=== PATIENT | male | born 1950 | race Caucasian/White ===

== ENCOUNTER 2016-11-15 09:42 | Inpatient (IN) | payer OTHER, MEDICARE ==
[2016-11-04 11:22] LABS: % IMMATURE GRANULYOCYTES 0.1 % (0.0-1.1); ABSOLUTE IMMATURE GRANULOCYTES 0.01 10^3/uL (0.00-0.10); ADD DIFF? NO; ADD MORPH? NO; ADD SCAN? NO; ATYPICAL LYMPHOCYTE FLAG 0 (0-99); FRAGMENT RBC FLAG 0 (0-99); HEMATOCRIT 40.8 % (40.0-51.0); HEMOGLOBIN 13.8 g/dL (13.7-17.5); LEFT SHIFT FLG 0 (0-99); LIPEMIA HEMOLYSIS FLAG 90 (0-99); MEAN CELL HEMOGLOBIN 32.5 pg (27.9-34.1); MEAN CELL HEMOGLOBIN CONCENTR. 33.8 g/dL (32.4-36.7); MEAN CELL VOLUME 96.2 fL (81.5-99.8); MEAN PLATELET VOLUME 11.1 fL (8.7-11.7); PLATELET CLUMPS FLAG 0 (0-99); PLATELET COUNT 146 10^3/uL (150-400); RED BLOOD CELL COUNT 4.24 10^6/uL (4.40-6.38); RED CELL DISTRIBUTION WIDTH 13.8 % (11.5-15.2)
[2016-11-04 11:31] LABS: ANION GAP 12 mEq/L (8-16); CALCIUM 9.4 mg/dL (8.5-10.4); CARBON DIOXIDE 23 mEq/l (22-31); CHLORIDE 107 mEq/L (97-110); CREATININE 1.8 mg/dL (0.7-1.3); GLOMERULAR FILTRATION RATE 38; GLUCOSE 86 mg/dL (70-100); POTASSIUM 4.8 mEq/L (3.5-5.2); SODIUM 142 mEq/L (134-144)
[~2016-11-15 09:42] MED LIST: POVIDONE-IODINE 20 ML in SODIUM CL IRRIG SOLUTION 500 ML IRR ONE; ROPIVACAINE 0.2% 80 MG, EPINEPHrine 0.2 MG in BAG 0 ML IU ONE; TRANEXAMIC ACID 1,000 MG in NS 100 ML IV ONE; VANCOMYCIN 1.5 GM in D5W 250 ML IV ONE
[2016-11-15] MEDS ORDERED: VANCOMYCIN PHARMACY TO DOSE MISC ONE (09:59)
[2016-11-15] MEDS ORDERED: ACETAMINOPHEN 325 MG TAB PO ONE (09:59)
[2016-11-15] MEDS ORDERED: FAMOTIDINE 20 MG TAB PO ONE (09:59)
[2016-11-15] MEDS ORDERED: DEXAMETHASONE 4 MG/ML VIAL IVP ONE (09:59)
[2016-11-15] MEDS ORDERED: LIDOCAINE 1% 2 ML INJ ID PRN (10:00)
[2016-11-15] MEDS ORDERED: LR 1,000 ML IV ONE (10:00)
[2016-11-15] MEDS ORDERED: ceFAZolin 1 GM/5 ML SYR ONE (10:05)
[2016-11-15] MEDS ORDERED: VANCOMYCIN 1 GM VIAL ONE (10:05)
[2016-11-15] MEDS ORDERED: VANCOMYCIN 1.5 GM in D5W 250 ML IV ONE (10:30)
--- NOTE | 2016-11-15 11:18 | PDHPUP ---
History & Physical Update H&P update statement: This history and physical update is based on an assessment of the patient which was completed after admission or registration (within 24 hours), but prior to the surgery/procedure. H&P update: H&P reviewed & patient examined, no change in patient's condition since H&P completed
[2016-11-15] MEDS ORDERED: MIDAZOLAM 2 MG/2 ML VIAL IVP ONE (11:51)
--- NOTE | 2016-11-15 11:51 | PDANEPAE ---
ANE History of Present Illness Knee OA ANE Past Medical History - Cardiovascular History Hx Hypertension: Yes Hx Arrhythmias: No Hx Chest Pain: No Hx Coronary Artery / Peripheral Vascular Disease: No Hx CHF / Valvular Disease: No Hx Palpitations: No Cardiovascular History Comment: well managed HTN - Pulmonary History Hx COPD: No Hx Asthma/Reactive Airway Disease: No Hx Recent Upper Respiratory Infection: No Hx Oxygen in Use at Home: No Hx Sleep Apnea: No Sleep Apnea Screening Result - Last Documented: Negative - Neurologic History Hx Cerebrovascular Accident: No Hx Seizures: No Hx Dementia: No - Endocrine History Hx Diabetes: No - Renal History Hx Renal Disorders: Yes Renal History Comment: slow emptying - Liver History Hx Hepatic Disorders: No - Neurological & Psychiatric Hx Hx Neurological and Psychiatric Disorders: No - Cancer History Hx Cancer: No - Congenital Disorder History Hx Congenital Disorders: No - GI History Hx Gastrointestinal Disorders: No - Other Health History Other Health History: OA bilat knees, L knee soreness. hx of "blood pooling in veins in lower legs-on Lasix". hx of glaucoma. "rash" L ankle responds to Triamcinolone - Chronic Pain History Chronic Pain: No - Surgical History Prior Surgeries: R knee open surgery -reimplantation of ureter age 50's. TURP age 50's. Trabeculectomy -bilat eyes ANE Review of Systems - Exercise capacity METS (RN): 4 METS ANE Patient History - Allergies Allergies/Adverse Reactions: Penicillins Allergy (Verified 10/23/16 15:21) Swelling/neck,face,throat - Home Medications Home Medications: Acetaminophen [Tylenol 325mg (*)] 325 mg PO DAILY PRN 11/15/16 [Last Taken Unknown] Furosemide [Lasix 20 MG (*)] 20 mg PO DAILY 11/15/16 [Last Taken 11/14/16] Lisinopril [Zestril 20 mg (*)] 20 mg PO HS 11/15/16 [Last Taken 11/14/16] - NPO status NPO Since - Liquids (Date): 11/14/16 NPO Since - Liquids (Time): 03:00 NPO Since - Solids (Date): 11/14/16 NPO Since - Solids (Time): 18:00 - Anes Hx Anes Hx: no prior problems - Smoking Hx Smoking Status: Former smoker ANE Labs/Vital Signs - Labs Result Diagrams: 11/04/16 10:57 11/04/16 10:57 - Vital Signs Blood Pressure: 118/72 Heart Rate: 56 Respiratory Rate: 16 O2 Sat (%): 94 Height: 184.15 cm Weight: 105.233 kg ANE Physical Exam - Airway Neck exam: FROM Mallampati Score: Class 2 Mouth exam: normal dental/mouth exam - Pulmonary Pulmonary: no respiratory distress - Cardiovascular Cardiovascular: regular rate and rhythym - ASA Status ASA Status: II ANE Anesthesia Plan Anesthesia Plan: MAC, spinal Regional Anesthesia: adductor canal FNB
[2016-11-15] MEDS ORDERED: MIDAZOLAM 2 MG/2 ML VIAL ONE (11:52)
[2016-11-15] MEDS ORDERED: PROPOFOL/EMULSION 500 MG/50 ML BOTTLE IV ONE (11:54)
[2016-11-15] MEDS ORDERED: PROPOFOL 200 MG/20 ML VIAL ONE (13:12)
[2016-11-15] MEDS ORDERED: ROPIVACAINE HCL 150 MG/30 ML INJ ONE (13:15)
--- NOTE | 2016-11-15 13:48 | POSTOPPROG ---
Post Op Note Date of Operation: 11/15/16 Surgeon: Freddy Soares Credit Administrator: Alex Herzog/Yogesh Mosquera Anesthesiologist: Sravan Dickens Anesthesia: IV Sedation, Spinal Post-op Diagnosis: Left knee severe degenerative arthritis. Procedure: Left total knee arthroplasty. Inf/Abcess present in the surg proc area at time of surgery?: No EBL: 50-100 (Adductor canal block.)
[2016-11-15] MEDS ORDERED: NALOXONE HCL 0.4 MG/ML INJ IVP PRN (14:00)
[2016-11-15] MEDS ORDERED: HYDROmorphONE/DILAUDID 1 MG/ML SYR IVP PRN (14:00)
[2016-11-15] MEDS ORDERED: ONDANSETRON 4 MG/2 ML VIAL IVP PRN ×2 (14:00→14:05)
[2016-11-15] MEDS ORDERED: fentaNYL 100 MCG/2 ML INJ IVP PRN (14:00)
[2016-11-15] MEDS ORDERED: DIPHENOXYLATE/ATROPINE LOMOTIL 1 TAB PO PRN (14:05)
[2016-11-15] MEDS ORDERED: CYCLOBENZAPRINE 10 MG TAB PO PRN (14:05)
[2016-11-15] MEDS ORDERED: LACTULOSE 20 GM/30 ML UDCUP PO PRN (14:05)
[2016-11-15] MEDS ORDERED: PHARMACY PAIN CONSULT 1 EA MISC PRN (14:05)
[2016-11-15] MEDS ORDERED: METOCLOPRAMIDE 10 MG/2 ML VIAL IVP PRN (14:05)
[2016-11-15] MEDS ORDERED: ONDANSETRON DISINTEGRATING 4 MG TAB PO PRN (14:05)
[2016-11-15] MEDS ORDERED: diphenhydrAMINE 25 MG CAP PO PRN (14:05)
[2016-11-15] MEDS ORDERED: traMADol 50 MG TAB PO PRN (14:05)
[2016-11-15] MEDS ORDERED: NS 500 ML IV PRN (14:05)
[2016-11-15] MEDS ORDERED: BISACODYL 10 MG SUPP PR PRN (14:05)
[2016-11-15] MEDS ORDERED: PROMETHAZINE HCL 25 MG SUPPR PR PRN (14:05)
[2016-11-15] MEDS ORDERED: POLYETHYLENE GLYCOL 3350 17 GM PKT PO PRN (14:05)
[2016-11-15] MEDS ORDERED: MAGNESIUM HYDROXIDE 30 ML UDCUP PO PRN (14:05)
[2016-11-15] MEDS ORDERED: PROMETHAZINE HCL 25 MG/ML INJ IVP PRN (14:05)
[2016-11-15] MEDS ORDERED: TEMAZEPAM 15 MG CAP PO PRN (14:05)
--- NOTE | 2016-11-15 14:23 | POSTANESTH ---
Post Anesthetic Evaluation Cardiovascular Status: Normal, Stable Respiratory Status: Normal, Stable Level of Consciousness/Mental Status: Can Participate in Eval Pain Control: Adequate, Prn Tx Ordered Nausea/Vomiting Control: Adequate, Prn Tx Ordered Complications Possibly Related to Anesthesia: None Noted
[2016-11-15] MEDS ORDERED: LR 1,000 ML IV SCH (14:30)
[2016-11-15] MEDS: oxyCODONE IR 5 MG TAB PO PRN ×2 (16:35→21:00)
[2016-11-15] MEDS: ACETAMINOPHEN 325 MG TAB PO SCH ×2 (17:38→23:54)
--- NOTE | 2016-11-15 17:52 | GOP ---
[f rep st] OPERATIVE REPORT DATE OF OPERATION: 11/15/2016 SURGEON: Freddy Soares MD CLINICAL RN: Alex Herzog and Yogesh Mosquera. ANESTHESIA: A combination of Marcaine, spinal, IV sedation, and adductor canal block. ANESTHESIOLOGIST: Dr. Sravan Dickens. PREOPERATIVE DIAGNOSIS: Left knee severe degenerative arthritis. POSTOPERATIVE DIAGNOSIS: Left knee severe degenerative arthritis. PROCEDURE PERFORMED: Left total knee arthroplasty, cemented, Doty and Nephew Journey II, posterior stabilized. FINDINGS: DESCRIPTION OF PROCEDURE: The patient was given 1 g of preoperative IV vancomycin within 60 minutes of surgery. He also received IV tranexamic acid at a dose of 10 mg/kg. He was placed on the opera ting room table and given spinal anesthesia with Marcaine by Dr. Dickens. He was then placed s upine and given IV sedation. A Soliz catheter was not used. He wore a stocking and SCD on the nono perative leg. His left lower extremity was prepped with ChloraPrep from the upper thigh tourniquet to the tips of the toes. It was draped free using sterile sheets, stockinette, and Ioban plastic ad hesive drape. The lower leg was wrapped with compressive Coban. The leg was exsanguinated with constantine vation and a 6-inch compressive wrap, and the pneumatic tourniquet was inflated to 275 mmHg. The [facility] time-out was performed to verify the correct patient identity and the correc t surgical side and site. The [place] time-out was also performed. The [place] leg holding device was sterilely attached to the operating room table and used throughout the procedure to help position the knee. A straight midline incision was made centered on the suazo lla. Subcutaneous tissues were sharply divided, and hemostasis was obtained using electrocautery. A medial subcutaneous flap was developed, and the capsule and synovium were opened in a medial parap atellar fashion. Extensive degenerative changes were present in all 3 compartments, but worse in th e patellofemoral joint and medial compartment. The medial capsule and periosteum were elevated off the rim of the medial tibial plateau all the way around to the posteromedial corner. The medial col lateral ligament was released enough to balance the medial side of the knee. In order to improve ex posure, his patella was prepared first. The original thickness of the patella was measured. Peripheral osteophytes were removed. I cut a f lat surface on the back of the patella. It was sized for a 41 mm resurfacing component. I removed enough bone from the patella such that the remaining bone plus the thickness of the patellar compone nt recreated the original thickness of the patella. The composite thickness was 24 mm. The intrame dullary alignment guide system was used to set up the distal femoral cut. The distal femur was cut in 5 degrees of valgus. Because of a 10-15 degree preoperative flexion contracture, I made a +2 mm cut on the distal femur. The sizing jig was used to determine proper femoral sizing. I shifted the size 8 jig anteriorly 2 mm in order to accommodate the size 8 without notching the anterior cortex. The 5 in 1 cutting block was applied, and the anterior and posterior condylar cuts and chamfer cut s were made. The final jig was used to remove the central portion of the distal femur to accommodat e the posterior stabilized femoral component. I was careful to determine proper rotation by referkumar leal off Whitesides line. Each cut was checked for accuracy before and after it was made. The femu r was sized for a size 8 posterior stabilized component. The trial component was tapped securely in to place and was a good fit. Next, the tibia was prepared. The proximal tibial cut was made using the extramedullary alignment g uide system. The cut was made in a few degrees of posterior slope. I was careful to achieve proper varus and valgus alignment and proper rotation. The posterior compartment was cleared of meniscal remnants. Osteophytes were removed the back of the femoral condyles. I checked the flexion and ext ension gaps, and they were equal, balanced and rectangular. The tibia was sized for a size 7 component. With the trial components in place, I selected a 10 mm polyethylene posterior stabilized tibial insert. The knee came to full extension and flexed to 125 degrees. The collateral ligaments were stable and balanced in 90 degrees of flexion and full extens ion. The trial patellar button was applied, and patellar tracking was checked. It was excellent wi thout any digital pressure. 40 mL of a joint anesthetic cocktail was injected in the posterior capsule, the periarticular struct ures, the quadriceps muscle and tendon areas, and the subcutaneous tissues along the skin edges. A second dose of IV tranexamic acid was given at a dose of 10 mg/kg. The surfaces were prepared for c ementing. They were carefully cleaned with the pulsating lavage irrigation and thoroughly dried. T he CarboJet device was used to blow dry the cancellous surfaces. A double batch of high viscosity m ethylmethacrylate cement with 2 g of powdered vancomycin added was mixed. While it was still in a s lidia liquid state, all 3 components were cemented in place. Excess cement was removed before it hard ened. The trial 10 mm tibial insert was re-tried and was the proper thickness. The actual componen t was inserted and locked into place. The knee was thoroughly irrigated one final time with a dilut e Betadine solution. The tourniquet was deflated. Total tourniquet time was 52 minutes. The vastus medialis portion of the extensor mechanism was repaired with several interrupted figure-o f-eight #2 FiberWire sutures. The capsule and synovium were closed first with multiple interrupted pceuei-vq-trvyo 0 PDS sutures, followed by a running #2 barbed Ethicon Stratafix PDO suture. The moralez bcutaneous tissues were closed with a running 0 barbed Ethicon Stratafix Monoderm suture. The skin was closed with a running 3-0 barbed Ethicon Stratafix Monoderm subcuticular suture. The skin was s ealed with half-inch Steri-Strips. The wound was covered with Xeroform gauze and flat 4x4s. The kn ee was wrapped with Kerlix and 6-inch compressive wrap. A long-leg SHIVAM stocking and SCD were applie d followed by the cooling device. The patient wore a stocking and SCD on the opposite leg during th e procedure. I used a size 8 cemented Doty and Nephew Oxinium posterior stabilized femoral component, size 7 deirdre ented tibial base plate, a 10 mm posterior stabilized tibial insert and a 41 mm cemented round all p olyethylene resurfacing patellar component. The estimated blood loss following placement of the tourniquet was about 100 mL. The sponge and nee dle count were correct on 2 occasions. He was awakened from the anesthesia, transferred to his hosp [facility] and taken to the PACU in satisfactory condition. There were no recognized intraoperativ e complications. In the PACU, for additional postoperative pain control, Dr. Dickens performed an adductor canal block. Alex Herzog and Yogesh Mosquera acted as surgical assistants. Their assistance was a medical andria rojas to safely complete the procedure. /[id number]/MODL
[2016-11-15] MEDS: ASPIRIN 325 MG TAB PO SCH (21:00)
[2016-11-15] MEDS ORDERED: LISINOPRIL 20 MG TAB PO SCH (21:00)
[2016-11-15] MEDS: FAMOTIDINE 20 MG TAB PO SCH (21:00)
[2016-11-15] MEDS: SENNOSIDES/DOCUSATE SODIUM TAB PO SCH (21:01)
[2016-11-16] MEDS: oxyCODONE IR 5 MG TAB PO PRN ×4 (03:00→14:07)
[2016-11-16 05:12] LABS: HEMATOCRIT 35.3 % (40.0-51.0); HEMOGLOBIN 11.9 g/dL (13.7-17.5)
[2016-11-16] MEDS: ACETAMINOPHEN 325 MG TAB PO SCH ×2 (05:54→12:53)
[2016-11-16] MEDS: SENNOSIDES/DOCUSATE SODIUM TAB PO SCH (07:39)
[2016-11-16] MEDS: FAMOTIDINE 20 MG TAB PO SCH (07:40)
[2016-11-16] MEDS: ASPIRIN 325 MG TAB PO SCH (07:41)
[2016-11-16 07:56] LABS: CREATININE 1.7 mg/dL (0.7-1.3); GLOMERULAR FILTRATION RATE 40
[2016-11-16] MEDS ORDERED: FERROUS SULFATE 140 MG TAB.ER PO SCH (09:00)
[2016-11-16] MEDS ORDERED: FUROSEMIDE 20 MG TAB PO SCH (09:00)
--- NOTE | 2016-11-16 10:31 | SOAPPROG ---
SOAP Progress Note Assessment/Plan: Assessment: POD #1, s/p L TKA Awake, alert, afebrile. Dressing clean and dry. Post op films look good. H/H ok. OOB with PT. Plan: Cont PT/OT D/c to home later today. 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
--- NOTE | 2016-11-16 10:39 | PDIAF ---
- Diagnosis Diagnosis: left knee OA Code Status: Full Code - Medication Management Discharge Medications: Medications to Continue on Transfer Furosemide [Lasix 20 MG (*)] 20 mg PO DAILY 11/15/16 [Last Taken 11/14/16] Lisinopril [Zestril 20 mg (*)] 20 mg PO HS 11/15/16 [Last Taken 11/14/16] Acetaminophen [Tylenol 325mg (*)] 650 mg PO Q6HRS #0 tab 11/16/16 [Last Taken Unknown] Aspirin [Aspirin 325 mg (*)] 325 mg PO DAILY #21 tab 11/16/16 [Last Taken Unknown] Ferrous Sulfate [Slow Fe 140 MG (*)] 140 mg PO DAILY #30 tab.er 11/16/16 [Last Taken Unknown] Ondansetron Odt [Zofran Odt 4 mg (*)] 4 mg PO Q4HRS PRN #0 tab 11/16/16 [Last Taken Unknown] oxyCODONE IR [Oxycodone Ir (*)] 5 - 10 mg PO Q3HRS PRN #0 tab 11/16/16 [Last Taken Unknown] traMADol [Ultram 50 mg (*)] 50 mg PO Q6HRS PRN #0 tab 11/16/16 [Last Taken Unknown] Discharge Medications: Refer to the Discharge Home Medication list for PRN reason. PICC Care - Routine: N/A - Orders Services needed: Home Care, Physical Therapy Home Care Face to Face: I certify that this patient was under my care and that I had the required [id number] encounter meeting the encounter requirements on the discharge day. My findings support the fact that the patient is homebound as defined in CMS Chapter 7 Medicare Benefits Manual 30.1.1, The condition of the patient is such that there exists a normal inability to leave home and consequently, leaving home would require a considerable and taxing effort. Diet Recommendation: no restrictions on diet Diet Texture: Regular Texture Diet Soliz: Not applicable Apolinar Stockings Discontinue Date: 1 week Wound Care Instructions: keep clean and dry. You may shower. Activity/Weight Bearing Restrictions: as tolerated. Equipment: Use Zero knee while in bed as tolerated. - Follow Up Care Current Providers and Referrals: NONE *PRIMARY CARE P,. [Primary Care Provider] - Freddy Soares MD [Medical Doctor] - 12/04/16 8:45 am
[2016-11-16 12:41] VITALS: BP 106/61; PULSE 69; RESP 12; TEMP 98; O2SAT 95
[2016-11-16] MEDS ORDERED: ENOXAPARIN 40 MG/0.4 ML SYR SC ONE (13:55)
[2016-11-16] MEDS ORDERED: ENOXAPARIN 40 MG/0.4 ML SYR SC SCH (14:00)
== END 2016-11-16 14:32 | disposition home health service (06) | DRG 470 ==
LOC: F3N 09:42
PROVIDERS: ADMIT Orthopaedic Surgery; ATTEND Orthopaedic Surgery
PROC: 0SRD0J9 Replacement of Left Knee Joint with Synthetic Substitute, Cemented, Open Approach (ICD-10-PCS; principal; 2016-11-15 11:45)
DX: M17.0 Bilateral primary osteoarthritis of knee (principal); Z86.718 Personal history of other venous thrombosis and embolism; I10 Essential (primary) hypertension; M10.9 Gout, unspecified
CPT/HCPCS: 97116-GP; 97161-GP; 97165-GO; C1713; G8978-GP-CI; G8979-GP-CI; G8980-GP-CI; G8987-GO-CI; G8988-GO-CI; G8989-GO-CI; J0171; J1100; J1650; J2250; J2704; J2795; J3370

== ENCOUNTER 2017-02-28 09:30 | Inpatient (IN) | payer OTHER, MEDICARE ==
--- NOTE | 2017-02-19 18:00 | GHP ---
[f rep st] PREOP HISTORY AND PHYSICAL DATE OF ADMISSION: He will be an a.m. admission for surgery at [facility] on February 28, 2017. PROBLEM: Right knee arthritis. HISTORY OF PRESENT ILLNESS: The patient is a 66-year-old man admitted for right total knee arthroplasty. He has been experiencing progressive bilateral knee pain. His activities have been limited. He has daily pain and night pain. He is unable to take anti-inflammatory medications because of mildly abnormal renal function. He underwent a left total knee arthroplasty on October, which has been successful. He is admitted at this time for a right total knee arthroplasty. PAST MEDICAL HISTORY: He is treated for hypertension. No history of heart disease, hepatitis, sleep apnea or bleeding problems. He had a blood clot in the left lower extremity 10 or 15 years ago. That was a spontaneous DVT. CURRENT MEDICATIONS: Lasix daily for left lower extremity swelling. Lisinopril for hypertension. ALLERGIES: Drug allergies: Penicillin. Metal allergy: None. Latex allergy: None. SOCIAL HISTORY: The patient does not smoke cigarettes. Occasionally drinks wine. He is working as an public health specialist. He is . FAMILY HISTORY: Unknown. PHYSICAL EXAMINATION: VITAL SIGNS: Height 6 feet 1 inch. Weight 225 pounds. BMI 29.7. EYES: The conjunctivae and sclerae are clear. Pupils are round and reactive. MOUTH: Good oral hygiene. No loose teeth. CHEST: Clear. HEART: Regular rhythm. No murmurs. EXTREMITIES: Pertinent findings limited to his right knee. He has slightly increased valgus alignment. A small effusion is present. He lacks 5 degrees of full extension and flexes to 110 degrees. IMAGING: His films show advanced degenerative arthritis of the right knee. He is bone on bone in the lateral compartment. He has increased valgus alignment. Moderate degenerative changes in the medial compartment. His left total knee looks excellent. IMPRESSION ON ADMISSION: 1. Right knee degenerative arthritis with valgus deformity. He is prepared for a right total knee arthroplasty. 2. Three months status post successful left total knee arthroplasty. 3. Treatment for hypertension. 4. History of left lower extremity DVT. PLAN: He will undergo a right total knee arthroplasty. The surgery has been described to him, including the risks, complications, expectations, and recovery time. He is in a high risk category for DVT and will be treated accordingly. I have stressed the importance of postoperative physical therapy. I have talked to him about the risk of infection. I have also advised him that with bilateral procedures there can be mild cyeg-fu-vboz differences in the recovery and even in the final result. He understands that a small percentage of people do not get a good result with a total knee replacement. He does not have a primary care doctor. /[id number]/MODL MTDD
--- NOTE | 2017-02-19 18:00 | GHP ---
[f rep st] PREOP HISTORY AND PHYSICAL DATE OF ADMISSION: He will be an a.m. admission for surgery at [facility] on February 28, 2017. PROBLEM: Right knee arthritis. HISTORY OF PRESENT ILLNESS: The patient is a 66-year-old man admitted for right total knee arthroplasty. He has been experiencing progressive bilateral knee pain. His activities have been limited. He has daily pain and night pain. He is unable to take anti-inflammatory medications because of mildly abnormal renal function. He underwent a left total knee arthroplasty on October, which has been successful. He is admitted at this time for a right total knee arthroplasty. PAST MEDICAL HISTORY: He is treated for hypertension. No history of heart disease, hepatitis, sleep apnea or bleeding problems. He had a blood clot in the left lower extremity 10 or 15 years ago. That was a spontaneous DVT. CURRENT MEDICATIONS: Lasix daily for left lower extremity swelling. Lisinopril for hypertension. ALLERGIES: Drug allergies: Penicillin. Metal allergy: None. Latex allergy: None. SOCIAL HISTORY: The patient does not smoke cigarettes. Occasionally drinks wine. He is working as an associate accountant. He is . FAMILY HISTORY: Unknown. PHYSICAL EXAMINATION: VITAL SIGNS: Height 6 feet 1 inch. Weight 225 pounds. BMI 29.7. EYES: The conjunctivae and sclerae are clear. Pupils are round and reactive. MOUTH: Good oral hygiene. No loose teeth. CHEST: Clear. HEART: Regular rhythm. No murmurs. EXTREMITIES: Pertinent findings limited to his right knee. He has slightly increased valgus alignment. A small effusion is present. He lacks 5 degrees of full extension and flexes to 110 degrees. IMAGING: His films show advanced degenerative arthritis of the right knee. He is bone on bone in the lateral compartment. He has increased valgus alignment. Moderate degenerative changes in the medial compartment. His left total knee looks excellent. IMPRESSION ON ADMISSION: 1. Right knee degenerative arthritis with valgus deformity. He is prepared for a right total knee arthroplasty. 2. Three months status post successful left total knee arthroplasty. 3. Treatment for hypertension. 4. History of left lower extremity DVT. PLAN: He will undergo a right total knee arthroplasty. The surgery has been described to him, including the risks, complications, expectations, and recovery time. He is in a high risk category for DVT and will be treated accordingly. I have stressed the importance of postoperative physical therapy. I have talked to him about the risk of infection. I have also advised him that with bilateral procedures there can be mild aefl-by-mzez differences in the recovery and even in the final result. He understands that a small percentage of people do not get a good result with a total knee replacement. He does not have a primary care doctor. /[id number]/MODL MTDD
[~2017-02-28 09:30] MED LIST changes: +NS IV ONE; -ROPIVACAINE 0.2% 80 MG, EPINEPHrine 0.2 MG in BAG 0 ML IU ONE; +ROPIVACAINE 0.2% 80 MG, EPINEPHrine 0.2 MG, KETOROLAC TROMETHAMINE 30 MG in BAG 0 ML IU ONE; -TRANEXAMIC ACID 1,000 MG in NS 100 ML IV ONE; +TRANEXAMIC ACID IV ONE; +ceFAZolin 1 GM/5 ML SYR ONE
[2017-02-28] MEDS ORDERED: VANCOMYCIN 1 GM VIAL ONE (10:12)
[2017-02-28] MEDS ORDERED: ACETAMINOPHEN 325 MG TAB PO ONE (10:13)
[2017-02-28] MEDS ORDERED: DEXAMETHASONE 4 MG/ML VIAL IVP ONE (10:13)
[2017-02-28] MEDS ORDERED: FAMOTIDINE 20 MG TAB PO ONE (10:13)
[2017-02-28] MEDS ORDERED: VANCOMYCIN PHARMACY TO DOSE MISC ONE (10:13)
[2017-02-28] MEDS ORDERED: LR 1,000 ML IV ONE (10:58)
[2017-02-28] MEDS ORDERED: MIDAZOLAM 2 MG/2 ML VIAL IVP ONE (11:20)
--- NOTE | 2017-02-28 12:17 | PDANEPAE ---
ANE Past Medical History - Cardiovascular History Hx Hypertension: Yes Hx Arrhythmias: No Hx Chest Pain: No Hx Coronary Artery / Peripheral Vascular Disease: No Hx CHF / Valvular Disease: No Hx Palpitations: No Cardiovascular History Comment: well managed HTN - Pulmonary History Hx COPD: No Hx Asthma/Reactive Airway Disease: No Hx Recent Upper Respiratory Infection: No Hx Oxygen in Use at Home: No Hx Sleep Apnea: No Sleep Apnea Screening Result - Last Documented: Positive Pulmonary History Comment: hossein triggers - Neurologic History Hx Cerebrovascular Accident: No Hx Seizures: No Hx Dementia: No - Endocrine History Hx Diabetes: No - Renal History Hx Renal Disorders: Yes Renal History Comment: slow emptying - Liver History Hx Hepatic Disorders: No - Neurological & Psychiatric Hx Hx Neurological and Psychiatric Disorders: No - Cancer History Hx Cancer: No - Congenital Disorder History Hx Congenital Disorders: No - GI History Hx Gastrointestinal Disorders: No - Other Health History Other Health History: wears glasses - Chronic Pain History Chronic Pain: Yes (right knee) - Surgical History Prior Surgeries: 11/15/16 Left TKA with Fany. R knee open surgery - reimplantation of ureter age 48's. TURP age 50's. Trabeculectomy -bilat eyes ANE Review of Systems Review of Systems: - Exercise capacity METS (RN): 4 METS ANE Patient History - Allergies Allergies/Adverse Reactions: Penicillins Allergy (Verified 01/25/17 10:22) Swelling/neck,face,throat - Home Medications Home Medications: Furosemide [Lasix 20 MG (*)] 11/15/16 [Last Taken 02/28/17 08:00] Lisinopril [Zestril 20 mg (*)] 11/15/16 [Last Taken 02/27/17 22:00] Acetaminophen [Tylenol 325mg (*)] 01/25/17 [Last Taken 02/27/17 22:00] Aspirin 81mg (*) 01/25/17 [Last Taken 02/25/17] Melatonin 01/25/17 [Last Taken 02/25/17] - NPO status NPO Since - Liquids (Date): 02/27/17 NPO Since - Liquids (Time): 19:00 NPO Since - Solids (Date): 02/27/17 NPO Since - Solids (Time): 22:00 - Smoking Hx Smoking Status: Former smoker - Family Anes Hx Family Hx Anesthesia Complications: none ANE Labs/Vital Signs - Vital Signs Blood Pressure: 129/80 Heart Rate: 71 Respiratory Rate: 16 O2 Sat (%): 93 Height: 184.15 cm Weight: 105.233 kg ANE Physical Exam - Airway Mallampati Score: Class 3 - Pulmonary Pulmonary: no respiratory distress, no rales or rhonchi - Cardiovascular Cardiovascular: regular rate and rhythym - ASA Status ASA Status: II
[2017-02-28] MEDS ORDERED: MIDAZOLAM 2 MG/2 ML VIAL ONE (12:20)
[2017-02-28] MEDS ORDERED: fentaNYL 100 MCG/2 ML INJ ONE (12:20)
[2017-02-28] MEDS ORDERED: PROPOFOL/EMULSION 500 MG/50 ML BOTTLE IV ONE (12:21)
[2017-02-28] MEDS ORDERED: ONDANSETRON 4 MG/2 ML VIAL IVP PRN ×2 (13:58→14:48)
[2017-02-28] MEDS ORDERED: NALOXONE HCL 0.4 MG/ML INJ IVP PRN (13:58)
[2017-02-28] MEDS ORDERED: ONDANSETRON 4 MG/2 ML VIAL ONE (14:22)
[2017-02-28] MEDS ORDERED: RANITIDINE 50 MG/2 ML VIAL ONE (14:22)
[2017-02-28] MEDS ORDERED: LIDOCAINE 2% 100 MG/5 ML SYR ONE (14:22)
[2017-02-28] MEDS ORDERED: ROPIVACAINE HCL 150 MG/30 ML INJ ONE (14:22)
--- NOTE | 2017-02-28 14:33 | POSTOPPROG ---
Post Op Note Date of Operation: 02/28/17 Surgeon: Freddy Soares Medical Technologist Blood Bank: Alex Herzog/Yogesh Mosquera Anesthesiologist: Dr. David Suarez Anesthesia: IV Sedation, Spinal Post-op Diagnosis: Right knee arthritis Procedure: Right total knee arthroplasty Inf/Abcess present in the surg proc area at time of surgery?: No EBL: 50-100 (Adductor canal block in PACU)
[2017-02-28] MEDS ORDERED: ONDANSETRON DISINTEGRATING 4 MG TAB PO PRN (14:48)
[2017-02-28] MEDS ORDERED: PROMETHAZINE HCL 25 MG/ML INJ IVP PRN (14:48)
[2017-02-28] MEDS ORDERED: PROMETHAZINE HCL 25 MG SUPPR PR PRN (14:48)
[2017-02-28] MEDS ORDERED: POLYETHYLENE GLYCOL 3350 17 GM PKT PO PRN (14:48)
[2017-02-28] MEDS ORDERED: TEMAZEPAM 15 MG CAP PO PRN (14:48)
[2017-02-28] MEDS ORDERED: diphenhydrAMINE 25 MG CAP PO PRN (14:48)
[2017-02-28] MEDS ORDERED: LACTULOSE 20 GM/30 ML UDCUP PO PRN (14:48)
[2017-02-28] MEDS ORDERED: MAGNESIUM HYDROXIDE 30 ML UDCUP PO PRN (14:48)
[2017-02-28] MEDS ORDERED: METOCLOPRAMIDE 10 MG/2 ML VIAL IVP PRN (14:48)
[2017-02-28] MEDS ORDERED: NS 500 ML IV PRN (14:48)
[2017-02-28] MEDS ORDERED: BISACODYL 10 MG SUPP PR PRN (14:48)
[2017-02-28] MEDS ORDERED: oxyCODONE IR 5 MG TAB PO PRN (14:48)
[2017-02-28] MEDS ORDERED: CYCLOBENZAPRINE 10 MG TAB PO PRN (14:48)
[2017-02-28] MEDS ORDERED: DIPHENOXYLATE/ATROPINE LOMOTIL 1 TAB PO PRN (14:48)
[2017-02-28] MEDS ORDERED: LR 1,000 ML IV SCH (15:00)
--- NOTE | 2017-02-28 15:25 | GOP ---
[f rep st] OPERATIVE REPORT DATE OF OPERATION: 02/28/2017 SURGEON: Freddy Soares MD DISABILITY LIAISON OFFICER: Alex Herzog PA-C, and oYgesh Mosquera CFA. ANESTHESIA: A combination of Marcaine spinal and IV sedation. ANESTHESIOLOGIST: David Suarez MD. PREOPERATIVE DIAGNOSIS: Right knee severe degenerative arthritis. POSTOPERATIVE DIAGNOSIS: Right knee severe degenerative arthritis. PROCEDURE PERFORMED: A right total knee arthroplasty, cemented, Doty Nephew Journey II, posterior s tabilized. FINDINGS: DESCRIPTION OF PROCEDURE: The patient was given 1 g of vancomycin preoperatively within 60 minutes o f surgery. He also received IV tranexamic acid at a dose of 10 mg/kg. He was placed on the operatin g room table and given spinal anesthesia with Marcaine by Dr. Suarez. He was placed supine and given IV sedation. A Soliz catheter was not used. He wore a SHIVAM stocking and SCD on the nonoperative leg . His right lower extremity was prepped with ChloraPrep from the upper thigh tourniquet to the tips of the toes. It was draped free using sterile sheets, stockinette, and Ioban plastic adhesive drape. The lower leg was wrapped with compressive Coban. The leg was exsanguinated with elevation and a 6 -inch compressive wrap, and the pneumatic tourniquet was inflated to 275 mmHg. The World Health Organization time-out was performed to verify the correct patient identity and the c orrect surgical side and site. The [place] time-out was also performed. The [place] [employer] leg-holding device was sterilely attached to the operating room table and used throughout the procedure to help position the knee. A straight midline incision was made centered on the patell a. Subcutaneous tissues were sharply divided, and hemostasis was obtained using electrocautery. A medial subcutaneous flap was developed, and the capsule and synovium were opened in medial parapate llar fashion. Extensive degenerative changes were present, particularly in the patellofemoral joint and lateral compartment. The medial capsule and periosteum were elevated off the rim and medial tibi al plateau all the way around to the posteromedial corner. His medial collateral ligament was releas ed enough to balance the medial side of the knee. Because of the mild preoperative valgus deformity, I did a very minimal medial release. In order to improve exposure, the patella was prepared first. The original thickness of the patella was measured. Peripheral osteophytes were removed. I cut a flat surface on the back of the patella. It was sized for a 41 mm resurfacing component. I removed enough bone from the patella such that t he remaining bone plus the thickness of the patellar component recreated the original thickness of th e patella. The composite thickness was 25 mm. The intramedullary alignment guide system was used to set up the distal femoral cut. The distal femu r was cut in 5 degrees of valgus. Because of a slight preoperative flexion contracture, I made a +2 mm cut on the distal femur. The sizing jig was used to determine proper femoral sizing. He was a tr ue size 8 without a shift. The 5-in-1 cutting block was applied, and anterior and posterior condylar cuts and chamfer cuts were made. The final jig was used to remove the central portion of the distal femur to accommodate the posterior-stabilized femoral component. I was careful to determine proper rotation by referencing off Trista line and other bony anatomic landmarks. Each cut was checked f or accuracy before and after it was made. The femur was sized for a size 8 posterior-stabilized comp onent. Next, the tibia was prepared. The proximal tibial cut was made using the extramedullary alignment gu mery system. The cut was made in a few degrees of posterior slope. I was careful to achieve proper v arus/valgus alignment and proper rotation. The posterior compartment was cleared of meniscal remnant s. Osteophytes were removed from the back of his femoral condyles. I checked the flexion and extens ion gaps, and they were equal, balanced, and rectangular. The tibia was sized for a size 7 component. With the trial components in place, I selected a 10 mm p olyethylene posterior-stabilized tibial insert. The knee came to full extension and flexed to 120 de grees. The collateral ligaments were stable and balanced in 90 degrees of flexion and full extension . The trial patellar button was applied, and tracking was checked. Tracking was excellent without a ny digital pressure. 40 mL of the joint anesthetic cocktail were injected into the posterior capsule, the periarticular st ructures, the quadriceps muscle and tendon areas, and the subcutaneous tissues along the skin edges. A second dose of IV tranexamic acid was given at a dose of 10 mg/kg. The surfaces were prepared for cementing. They were carefully cleaned with the pulsating lavage and thoroughly dried. The CarboJet device was used to blow dry the cancellous surfaces. A double batch of high-viscosity methylmethacrylate cement with 2 g of powdered vancomycin added was mixed. While i t was still in a semi-liquid state, all [address] components were cemented in place. Excess cement was remov ed before it hardened. The 10 mm trial tibial insert was re-tried and was the proper thickness. The actual component was in serted and locked into place. The knee was thoroughly irrigated one final time with a dilute Betadin e solution. The tourniquet was deflated, and the total tourniquet time was 52 minutes. The vastus medialis portion of the extensor mechanism was repaired with several interrupted figure-of -eight #2 FiberWire sutures. The capsule and synovium were closed first with multiple interrupted fi [id number] 0 PDS sutures, followed by a running #2 barbed Ethicon Stratafix PDO suture. The subcu taneous tissues were closed with a running 0 barbed Ethicon Stratafix Monoderm suture. The skin was closed with a running 3-0 barbed Ethicon Stratafix Monoderm subcuticular suture. The skin was sealed with half-inch Steri-Strips. The wound was covered with a sterile Mepilex waterproof surgical dress ing, followed by a 6-inch compressive wrap. A long-leg SHIVAM stocking and SCD were applied, followed b y the cooling device. I used a size 8 cemented Doty and Nephew Oxinium posterior-stabilized femoral component, a size 7 ce mented tibial base plate, a 10 mm posterior-stabilized tibial insert, and a 41 mm cemented round all- polyethylene resurfacing patellar component. The estimated blood loss following deflation of the tourniquet was about 100 cc. The sponge and need le count were correct on 2 occasions. The patient was awakened from anesthesia, transferred to his [facility] and taken to PACU in sa tisfactory condition. There were no recognized intraoperative complications. In the PACU, for additional postoperative pain control, Dr. Suarez performed an adductor canal block. Yogesh Mosquera CFA, and Alex Herzog PA-C acted as surgical assistants. Their assistance was a me dical necessity for safe completion of the procedure. /[id number]/MODL
--- NOTE | 2017-02-28 17:10 | POSTANESTH ---
Post Anesthetic Evaluation Cardiovascular Status: Normal, Stable Respiratory Status: Normal, Stable Level of Consciousness/Mental Status: Can Participate in Eval Pain Control: Adequate, Prn Tx Ordered Nausea/Vomiting Control: Adequate, Prn Tx Ordered Complications Possibly Related to Anesthesia: None Noted (Adductor Canal Sapenous Nerve block with US guidance performed in [facility]. Proceedure tolerated well. image sent to medical records.)
[2017-02-28] MEDS: ACETAMINOPHEN 325 MG TAB PO SCH (17:55)
[2017-02-28] MEDS ORDERED: LISINOPRIL 20 MG TAB PO SCH (21:00)
[2017-02-28] MEDS: SENNOSIDES/DOCUSATE SODIUM TAB PO SCH (21:57)
[2017-02-28] MEDS: FAMOTIDINE 20 MG TAB PO SCH (21:58)
[2017-03-01] MEDS: ACETAMINOPHEN 325 MG TAB PO SCH ×3 (00:02→11:29)
--- NOTE | 2017-03-01 07:28 | SOAPPROG ---
SOAP Progress Note Assessment/Plan: Assessment: Afebrile. Awake and alert. He has been up and walking to the bathroom several times. Mild pain. His dressing is dry. Postop films look good. Hemoglobin and hematocrit are satisfactory. Plan: Up with physical therapy for Phillips walking and stairs. Discharge later today. 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
[2017-03-01 07:59] VITALS: BP 120/73; PULSE 63; RESP 12; TEMP 98.3; O2SAT 90
--- NOTE | 2017-03-01 08:09 | GDS ---
[f rep st] DISCHARGE SUMMARY ADMISSION DIAGNOSIS: Right knee degenerative arthritis. DISCHARGE DIAGNOSIS: Right knee degenerative arthritis. OPERATION PERFORMED: 02/28/2017, right total knee arthroplasty. POSTOPERATIVE COMPLICATIONS: None. CONDITION ON DISCHARGE: Improved. DESCRIPTION OF HOSPITAL COURSE: The patient was admitted to the hospital on the morning of surgery. His CBC was normal except for a platelet count of 148,000. Electrolytes were normal. BUN 46, creat inine 1.7. The same day, under a combination of Marcaine, spinal, IV sedation, and adductor canal bl ock he underwent a right total knee arthroplasty. Postoperatively, he was treated with multimodal DV T prophylaxis, including early ambulation and Lovenox. He has a history of previous left lower extre mity DVT. On the first postoperative day, his hemoglobin and hematocrit were 12.6 and 38.3. He was seen by Physical Therapy and made good progress with ambulation and stairs. By the time of discharge , he was afebrile, his wound was clean and dry, and he was independent walking. DISPOSITION: The patient is discharged to his home. He will go to outpatient physical therapy at my office. He may progress to full weightbearing on the right as tolerated. Continue Lovenox 40 mg moralez bcu daily for 21 days. I will see him back in the office in 10 or 12 days. He may progress to full weightbearing on the right as tolerated. SHIVAM stockings for 1 week. If there are any problems, he is to call me at the office. /[id number]/MODL
[2017-03-01] MEDS: SENNOSIDES/DOCUSATE SODIUM TAB PO SCH (08:43)
[2017-03-01] MEDS: FAMOTIDINE 20 MG TAB PO SCH (08:44)
[2017-03-01] MEDS ORDERED: FERROUS SULFATE 140 MG TAB.ER PO SCH (09:00)
[2017-03-01] MEDS ORDERED: ENOXAPARIN 40 MG/0.4 ML SYR SC SCH (09:00)
[2017-03-01] MEDS ORDERED: FUROSEMIDE 20 MG TAB PO SCH (09:00)
--- NOTE | 2017-03-01 15:07 | ASMTCMCOM ---
CM Note CM Note Notes: PT clears pt for home. Pt no longer wants [facility], he will have outpatient PT. No CM d/c needs identified. Date Signed: 03/01/2017 03:06 PM Electronically Signed By:MARK Garcia
--- NOTE | 2017-03-01 15:07 | ASDISCHSUM ---
Discharge Information Plan Status:Home with No Needs Medically Cleared to Leave: Discharge Date:03/01/2017 12:25 PM CM D/C Disposition:Home, Routine, Self-Care ADT D/C Disposition:Home, Routine, Self-Care Projected Discharge Date:03/01/2017 12:25 PM Transportation at D/C: Discharge Delay Reason: Follow-Up Date:03/01/2017 12:25 PM Discharge Slot: Final Diagnosis: Placement Information Patient Contact Information Contact Name:GERHARD Relationship: Address:[address] City:[place] Alternate Phone: State/Zip Code:[place] [address] Email: Financial Information Financial Class: Primary Plan Desc:MEDICARE INPATIENT Primary Plan Number:[id number] Secondary Plan Desc:AARP/MDR SUPPLEMENT Secondary Plan Number:[id number] Assessment Information [facility] CM Progress Note CM Note CM Note Notes: PT clears pt for home. Pt no longer wants C, he will have outpatient PT. No CM d/c needs identified. Date Signed: 03/01/2017 03:06 PM Electronically Signed By:MARK Garcia Intervention Information
--- NOTE | 2017-03-01 15:07 | ASDISCHSUM ---
Discharge Information Plan Status:Home with No Needs Medically Cleared to Leave: Discharge Date:03/01/2017 12:25 PM CM D/C Disposition:Home, Routine, Self-Care ADT D/C Disposition:Home, Routine, Self-Care Projected Discharge Date:03/01/2017 12:25 PM Transportation at D/C: Discharge Delay Reason: Follow-Up Date:03/01/2017 12:25 PM Discharge Slot: Final Diagnosis: Placement Information Patient Contact Information Contact Name:GERHARD Relationship: Address:[address] City:[place] Alternate Phone: State/Zip Code:[place] [address] Email: Financial Information Financial Class: Primary Plan Desc:MEDICARE INPATIENT Primary Plan Number:[id number] Secondary Plan Desc:AARP/MDR SUPPLEMENT Secondary Plan Number:[id number] Assessment Information [facility] CM Progress Note CM Note CM Note Notes: PT clears pt for home. Pt no longer wants C, he will have outpatient PT. No CM d/c needs identified. Date Signed: 03/01/2017 03:06 PM Electronically Signed By:MARK Garcia Intervention Information
--- NOTE | 2017-03-01 15:07 | ASDISCHSUM ---
Discharge Information Plan Status:Home with No Needs Medically Cleared to Leave: Discharge Date:03/01/2017 12:25 PM CM D/C Disposition:Home, Routine, Self-Care ADT D/C Disposition:Home, Routine, Self-Care Projected Discharge Date:03/01/2017 12:25 PM Transportation at D/C: Discharge Delay Reason: Follow-Up Date:03/01/2017 12:25 PM Discharge Slot: Final Diagnosis: Placement Information Patient Contact Information Contact Name:GERHARD Relationship: Address:[address] City:[place] Alternate Phone: State/Zip Code:[place] [address] Email: Financial Information Financial Class: Primary Plan Desc:MEDICARE INPATIENT Primary Plan Number:[id number] Secondary Plan Desc:[employer]ARP/MDR SUPPLEMENT Secondary Plan Number:[id number] Assessment Information [facility] CM Progress Note CM Note CM Note Notes: PT clears pt for home. Pt no longer wants C, he will have outpatient PT. No CM d/c needs identified. Date Signed: 03/01/2017 03:06 PM Electronically Signed By:MARK Garcia Intervention Information
== END 2017-03-01 12:25 | disposition home or self-care (01) | DRG 470 ==
LOC: F3N 09:49
PROVIDERS: ADMIT Orthopaedic Surgery; ATTEND Orthopaedic Surgery
PROC: 0SRC0J9 Replacement of Right Knee Joint with Synthetic Substitute, Cemented, Open Approach (ICD-10-PCS; principal; 2017-02-28 12:00)
DX: M17.11 Unilateral primary osteoarthritis, right knee (principal); I10 Essential (primary) hypertension; G47.33 Obstructive sleep apnea (adult) (pediatric); Z96.652 Presence of left artificial knee joint; Z87.891 Personal history of nicotine dependence
CPT/HCPCS: 97116-GP; 97161-GP; 97165-GO; C1713; G8978-GP-CI; G8979-GP-CI; G8980-GP-CI; G8987-GO-CI; G8988-GO-CI; G8989-GO-CI; J0171; J1100; J1650; J1885; J2001; J2250; J2405; J2704; J2780; J2795; J3010; J3370

== ENCOUNTER → 2018-08-29 | Outpatient (CLI) | payer OTHER, MEDICARE | LOC: FIMAGING 09:59 | PROVIDERS: ATTEND Orthopaedic Surgery | DX: M16.12 Unilateral primary osteoarthritis, left hip (principal) ==

== ENCOUNTER → 2018-10-08 | Outpatient (CLI) | payer OTHER, MEDICARE | LOC: FIMAGING 07:18 ==